=== PATIENT | female | born 1985 | race African-American/Black ===

== ENCOUNTER 2016-10-06 15:16 | Emergency (ER) | payer MEDICAID, OTHER ==
[~2016-10-06] VITALS: Ht 165.1 cm; Wt 100.0 kg
[~2016-10-06 15:16] MED LIST: DICL75TA PO; MAGICPED SWISH-SWAL; PENI500T PO
[2016-10-06 15:18] VITALS: BP 126/74; PULSE 79; RESP 16; TEMP 98.8; O2SAT 98
--- NOTE | 2016-10-06 15:29 | PD ---
HPI Chief Complaint: Abdominal Pain Time Seen by Provider: 15:29 Travel History International Travel<30 days: No Contact w/Intl Traveler<30days: No Traveled to known affect area: No History of Present Illness HPI 31 year-old female presents to the emergency department for evaluation of lower abdominal pain, low back pain, nausea, vomiting, and a vaginal discharge that is foul-smelling, noticed yesterday. Patient denies any fever or chills. Denies any bowel changes. No urinary symptoms. Is uncertain of . That her last menstrual cycle was at the beginning of this month. She has no other symptoms to report at this time. COUNT INCLUDES THE [facility] Past Medical History Asthma: Yes Diminished Hearing: No Hypertension: Yes Immunizations Current: No ?: Unknown LMP: 09/11/16 : 3 Para: 1 Miscarriage: 1 : 1 Dilation and Curettage (D&C): Yes (2007) Past Surgical History Section: Yes Gynecologic Surgery: Yes (D & C 09/2007, 2009) Other Surgery: Yes () Social History Alcohol Use: No Tobacco Use: Yes Substance Use: No Allergies-Medications (Allergen,Severity, Reaction): Coded Allergies: No Known Allergies (Verified , 10/06/16) Reported Meds & Prescriptions Reported Meds & Active Scripts Active Flagyl (Metronidazole) 500 Mg Tab 500 Mg PO BID 7 Days Review of Systems Except as stated in HPI: all other systems reviewed are Neg Physical Exam Narrative GENERAL: Well-nourished female patient, in no acute distress SKIN: Focused skin assessment warm/dry. HEAD: Atraumatic. Normocephalic. EYES: Pupils equal and round. No scleral icterus. No injection or drainage. ENT: No nasal bleeding or discharge. Mucous membranes pink and moist. NECK: Trachea midline. No JVD. CARDIOVASCULAR: Regular rate and rhythm. No murmur appreciated. RESPIRATORY: No accessory muscle use. Clear to auscultation. Breath sounds equal bilaterally. GASTROINTESTINAL: Abdomen soft, nondistended. Suprapubic tenderness to palpation.. Hepatic and splenic margins not palpable. GENITOURINARY: Normal external genitalia without lesions or erythema. Vaginal vault foul-smelling whitish green discharge. No blood.. Cervical os was closed without drainage. Mild cervical motion tenderness. Uterus nontender and nonenlarged. Bilateral adnexa nontender without masses. MUSCULOSKELETAL: No obvious deformities. No clubbing. No cyanosis. No edema. NEUROLOGICAL: Awake and alert. No obvious cranial nerve deficits. Motor grossly within normal limits. Normal speech. PSYCHIATRIC: Appropriate mood and affect; insight and judgment normal. Data Data Last Documented VS Vital Signs Date Time Temp Pulse Resp B/P Pulse Ox O2 Delivery O2 Flow Rate FiO2 10/06/16 15:18 98.8 79 16 126/74 98 Orders Urinalysis - C+S If Indicated (10/06/16 15:28) Wet Prep Profile (10/06/16 15:28) Gc And Chlamydia Pcr (10/06/16 15:28) Ed Urine Pregnancytest Poc (10/06/16 15:28) Ceftriaxone Inj (Rocephin Inj) (10/06/16 16:15) Lidocaine 1% Inj (50 Ml) (Xylocaine 1% I (10/06/16 16:15) Azithromycin (Zithromax) (10/06/16 16:15) Ketorolac Inj (Toradol Inj) (10/06/16 16:30) Labs Laboratory Tests Test 10/06/16 10/06/16 15:50 16:05 Urine Color LIGHT-YELLOW Urine Turbidity HAZY Urine pH 6.5 Urine Specific [place] 1.015 Urine Protein NEG mg/dL Urine Glucose (UA) NEG mg/dL Urine Ketones NEG mg/dL Urine Occult Blood NEG Urine Nitrite NEG Urine Bilirubin NEG Urine Urobilinogen LESS THAN 2.0 MG/DL Urine Leukocyte Esterase SMALL Urine WBC 6 /hpf Urine Squamous Epithelial 10 /hpf Cells Urine Bacteria RARE /hpf Microscopic Urinalysis Comment CULT NOT INDICATED Chlamydia trachomatis DNA NOT DETECTED (PCR) Neisseria gonorrhoeae DNA NOT DETECTED (PCR) Clue Cells (Wet Prep) PRESENT Vaginal Trichomonas (Wet Prep) NONE SEEN Vaginal Yeast (Wet Prep) NONE SEEN MDM Medical Decision Making Medical Screen Exam Complete: Yes Emergency Medical Condition: Yes Medical Record Reviewed: Yes Differential Diagnosis Cystitis versus vaginitis versus urethritis versus PID versus BV Narrative Course 31 year-old female presents to the urgency department for evaluation. Urine is hazy with small leukocyte esterase, 6 WBC, rare bacteria. Culture is not indicated. Wet prep is positive for clue cells. Patient will be strict treated for BV. GC PCR is pending. She'll be treated empirically for this. Urine is negative. She is encouraged to follow-up with primary care provider. She agrees to return immediately with any acute worsening of symptoms. Diagnosis Primary Impression: Bacterial vaginosis Additional Impression: Foul smelling vaginal discharge Referrals: Project Account Manager Primary Care Physician Patient Instructions: Bacterial Vaginosis (ED), General Instructions Additional Instructions: Follow-up with a primary care provider Seek gynecology evaluation Return immediately with any acute worsening of symptoms Med/Other Pt SpecificInfo: Prescription(s) given Scripts Metronidazole (Flagyl)500 Mg Eli629 Mg PO BID 7 Days Ref 0 Prov:Diamond Knowles 10/06/16 Disposition: DISCHARGE HOME Condition: Stable Diamond Knowles Oct 06, 2016 15:29
[2016-10-06] MEDS ORDERED: cefTRIAXone 250 MG VIAL IM ONE (16:15)
[2016-10-06] MEDS ORDERED: LIDOCAINE HCL 1% 50 ML VIAL XX ONE (16:15)
[2016-10-06] MEDS ORDERED: AZITHROMYCIN 250 MG TAB PO ONE (16:15)
[2016-10-06 16:16] LABS: BACTERIA, URINE RARE /hpf; BLOOD, URINE NEG (NEG); COMMENT (UR) CULT NOT INDICATED; CULTURE IF INDICATED CULT NOT INDICATED; GLUCOSE,URINE NEG (NEG); KETONE, URINE NEG (NEG); NITRITE,URINE NEG (NEG); PH, URINE 6.5 (5.0-8.5); SQUAMOUS EPITHELIAL CELL URINE 10 /hpf (0-5); URINE COLOR LIGHT-YELLOW (YELLW/STRAW)
[2016-10-06] MEDS ORDERED: KETOROLAC TROMETHAMINE 60 MG/2 ML (IM) VIAL IM ONE (16:30)
[2016-10-06] MEDS ORDERED: METR-1 PO (16:47)
[2016-10-06 18:37] LABS: CHLAMYDIA PCR NOT DETECTED (NOT DETECT); NEISSERIA PCR NOT DETECTED (NOT DETECT)
== END 2016-10-06 17:08 | disposition home or self-care (01) ==
LOC: NEPD 15:16
DX: N76.0 Acute vaginitis (principal); N89.8 Other specified noninflammatory disorders of vagina; I10 Essential (primary) hypertension; F17.210 Nicotine dependence, cigarettes, uncomplicated
CPT/HCPCS: 81001; 84703; 87210; 87491; 87591; 96372; 99284; J0696; J1885

== ENCOUNTER 2017-02-03 05:44 | Emergency (ER) | payer MEDICAID, OTHER ==
[~2017-02-03] VITALS: Ht 165.1 cm; Wt 119.0 kg
[~2017-02-03 05:44] MED LIST changes: -DICL75TA PO; -MAGICPED SWISH-SWAL; +METR-1 PO; -PENI500T PO
[2017-02-03 05:57] VITALS: BP 133/85; PULSE 81; RESP 18; TEMP 99.1
[2017-02-03 06:03] VITALS: BP 133/85; PULSE 87; RESP 18; TEMP 99.1; O2SAT 100
--- NOTE | 2017-02-03 06:11 | PD ---
HPI Chief Complaint: Respiratory Symptoms Time Seen by Provider: 06:08 Travel History International Travel<30 days: No Contact w/Intl Traveler<30days: No Traveled to known affect area: No History of Present Illness HPI 31 year-old female presents to the emergency department by EMS transport for complaint of shortness of breath and exacerbation of asthma. Patient is out of her rescue inhaler. Patient does not report other complaint of respiratory illness fever or chest pain abdominal pain or vomiting. No report of lower extremity pain or swelling. Patient denies other concerns or complaints. Last period was January 16 and normal for her. Denies . Patient did receive Solu-Medrol 125 mg IV prior to arrival to the emergency department and one albuterol updraft with some improvement of symptoms. Patient still complains of persistent shortness of breath. Patient admits to tobaccoism. [facility] Past Medical History Narrative Medical Asthma Ab2 D&C tobaccoism nursing notes reviewed Asthma: Yes Diminished Hearing: No Hypertension: Yes Immunizations Current: No ?: Not LMP: 01/16/17 : 3 Para: 1 Miscarriage: 1 : 1 Dilation and Curettage (D&C): Yes (2007) Past Surgical History Section: Yes Gynecologic Surgery: Yes (D & C 09/2007, 2009) Other Surgery: Yes () Social History Alcohol Use: No Tobacco Use: Yes Substance Use: No Allergies-Medications (Allergen,Severity, Reaction): Coded Allergies: No Known Allergies (Verified , 10/06/16) Reported Meds & Prescriptions Reported Meds & Active Scripts Active Medrol Dosepak (Methylprednisolone) 4 Mg Dspk 4 Mg PO DIRECTED Per Pharmacist direction Proair Hfa 8.5 GM Inh (Albuterol Sulfate) 90 Mcg/Act Aer 2 Puff INH Q4-6H PRN 108 mcg/actuation Flagyl (Metronidazole) 500 Mg Tab 500 Mg PO BID 7 Days Review of Systems Except as stated in HPI: all other systems reviewed are Neg General / Constitutional: No: Fever, Chills HENT: No: Congestion Cardiovascular: No: Chest Pain or Discomfort Respiratory: Positive: Cough, Shortness of Breath Gastrointestinal: No: Nausea, Vomiting, Abdominal Pain Genitourinary: No: Dysuria, Flank Pain Musculoskeletal: No: Myalgias, Arthralgias Skin: No Rash Neurologic: No: Weakness Psychiatric: No: Anxiety Endocrine: No: Heat Intolerance Hematologic/Lymphatic: No: Lymph Node Enlargement Physical Exam Narrative GENERAL: Well-developed well-nourished female in no acute distress no respiratory distress SKIN: Warm and dry. HEAD: Normocephalic. EYES: No scleral icterus. No injection or drainage. NECK: Supple, trachea midline. No JVD or lymphadenopathy. CARDIOVASCULAR: Regular rate and rhythm without murmurs, gallops, or rubs. RESPIRATORY: Breath sounds equal bilaterally diminished breath sounds with few end expiratory wheezes. No accessory muscle use. GASTROINTESTINAL: Abdomen soft, non-tender, nondistended. MUSCULOSKELETAL: No cyanosis, or edema. BACK: Nontender without obvious deformity. No CVA tenderness. Data Data Last Documented VS Vital Signs Date Time Temp Pulse Resp B/P (MAP) Pulse Ox O2 Delivery O2 Flow Rate FiO2 02/03/17 06:03 99.1 87 18 133/85 (101) 100 02/03/17 06:03 Room Air Orders Orders Albuterol-Ipratropium Neb (Duoneb Neb) (02/03/17 06:15) [facility] Medical Decision Making Medical Screen Exam Complete: Yes Emergency Medical Condition: Yes Medical Record Reviewed: Yes Differential Diagnosis Exacerbation asthma, bronchitis, medication refill Narrative Course Patient with history of asthma smoke cigarettes out of her rescue inhaler presents with complaint of shortness of breath. No other concerns or complaints no recent respiratory illness or febrile illness. No chest pain or abdominal pain no pleuritic pain lower extremity numbness tingling weakness swelling or pain. No orthopnea or PND. Patient will receive an additional updraft treatment and will need a refill of her rescue inhaler. Patient also reports that she needs a refill of albuterol solution for her nebulizer. After updraft treatment in the emergency department lung sounds are clear patient is stable for outpatient management. Diagnosis Primary Impression: Asthma Additional Impression: Medication refill Referrals: Primary Care Physician call for appointment Patient Instructions: General Instructions Additional Instructions: Increase fluid hydration Use inhaler as prescribed as needed Complete course of steroid as prescribed Follow-up with your primary care provider clinic May use acetaminophen/Tylenol as needed for fever 100.4F or greater Return to the emergency department for any concerns or change in condition Med/Other Pt SpecificInfo: Prescription(s) given Scripts Albuterol Neb (Albuterol Neb) 2.5 Mg/3 Ml Neb 2.5 MG NEB Q4HR NEB Y for SHORTNESS OF BREATH, #60 NEBULE 0 Refills Prov: Melissa Lewis MD 02/03/17 Methylprednisolone Dosepak (Medrol Dosepak) 4 Mg Dspk 4 MG PO DIRECTED, #1 DSPK 0 Refills Per Pharmacist direction Prov: Melissa Lewis MD 02/03/17 Albuterol 8.5 GM Inh (Proair Hfa 8.5 GM Inh) 90 Mcg/Act Aer 2 PUFF INH Q4-6H Y for SHORTNESS OF BREATH, #1 INHALER 0 Refills 108 mcg/actuation Prov: Melissa Lewis MD 02/03/17 Disposition: 01 DISCHARGE HOME Condition: Stable Melissa Lewis MD Feb 03, 2017 06:11
[2017-02-03] MEDS ORDERED: RESP: ALBUTEROL 2.5 MG/IPRATROPIUM 0.5 MG NEB (SCH) NEB ONE (06:15)
[2017-02-03] MEDS ORDERED: MEDR4PAK PO (06:31)
[2017-02-03] MEDS ORDERED: ALBUAER3 INH (06:31)
[2017-02-03] MEDS ORDERED: ALBU0.08 NEB (06:34)
== END 2017-02-03 06:42 | disposition home or self-care (01) ==
LOC: NEPC 05:44
DX: Z76.0 Encounter for issue of repeat prescription (principal); J45.909 Unspecified asthma, uncomplicated; I10 Essential (primary) hypertension
CPT/HCPCS: 94664; 99283

== ENCOUNTER 2017-02-22 18:02 | Emergency (ER) | payer OTHER ==
[~2017-02-22 18:02] MED LIST changes: +ALBU0.08 NEB; +ALBUAER3 INH; +MEDR4PAK PO
[2017-02-22 18:03] VITALS: BP 151/97; PULSE 89; RESP 20; TEMP 98.4; O2SAT 98
== END 2017-02-22 18:25 | disposition left against medical advice (07) ==
LOC: NED 18:02
DX: R10.9 Unspecified abdominal pain (principal); Z53.21 Procedure and treatment not carried out due to patient leaving prior to being seen by health care provider
CPT/HCPCS: 99281

== ENCOUNTER 2017-08-10 08:32 | Emergency (ER) | payer OTHER ==
[~2017-08-10] VITALS: Ht 165.1 cm; Wt 111.0 kg
[2017-08-10 08:38] VITALS: BP 123/77; PULSE 86; RESP 18; TEMP 98.7; O2SAT 100
[2017-08-10] MEDS ORDERED: SODIUM CHLORIDE 0.9% FLUSH 10 ML FLUSH IV FLUSH PRN (09:15)
--- NOTE | 2017-08-10 09:15 | PD ---
HPI Chief Complaint: Abdominal Pain Time Seen by Provider: 08:59 Travel History International Travel<30 days: No Contact w/Intl Traveler<30days: No Traveled to known affect area: No History of Present Illness HPI The patient was seen and examined in the presence of the nurse. This patient complains of pelvic pain. It's bilateral right and low quadrant pain. Duration 6 days. In a very atypical fashion, her pain comes on in the middle of night around 2 AM. She does not have pain during the day or evening times. She denies vaginal discharge or bleeding or urinary complaints or fever or vomiting or diarrhea. Severity is moderate. No alleviating factors. No exacerbating factors. PFSH Past Medical History Asthma: Yes Diminished Hearing: No Hypertension: Yes Immunizations Current: No ?: Not LMP: 07/14/17 : 3 Para: 1 Miscarriage: 1 : 1 Dilation and Curettage (D&C): Yes (2007) Past Surgical History Section: Yes Gynecologic Surgery: Yes (D & C 09/2007, 2009) Other Surgery: Yes () Social History Alcohol Use: No Tobacco Use: Yes Substance Use: No Allergies-Medications (Allergen,Severity, Reaction): Coded Allergies: No Known Allergies (Verified Adverse Reaction, Unknown, 08/10/17) Reported Meds & Prescriptions Reported Meds & Active Scripts Active Albuterol Neb (Albuterol Sulfate) 2.5 Mg/3 Ml Neb 2.5 Mg NEB Q4HR NEB PRN Medrol Dosepak (Methylprednisolone) 4 Mg Dspk 4 Mg PO DIRECTED Per Pharmacist direction Proair Hfa 8.5 GM Inh (Albuterol Sulfate) 90 Mcg/Act Aer 2 Puff INH Q4-6H PRN 108 mcg/actuation Flagyl (Metronidazole) 500 Mg Tab 500 Mg PO BID 7 Days Review of Systems General / Constitutional: No: Fever Eyes: No: Visual changes HENT: No: Headaches Cardiovascular: No: Chest Pain or Discomfort Respiratory: No: Shortness of Breath Gastrointestinal: Positive: Abdominal Pain Genitourinary: Positive: Pelvic Pain, No: Dysuria Musculoskeletal: No: Pain Skin: No Rash Neurologic: No: Weakness Psychiatric: No: Depression Endocrine: No: Polydipsia Hematologic/Lymphatic: No: Easy Bruising Physical Exam Narrative GENERAL: Well-nourished, well-developed patient with pelvic pain . SKIN: Focused skin assessment reveals no rash and nodules. Skin is Warm and dry. HEAD: Atraumatic. Normocephalic. EYES: Pupils equal and round. No scleral icterus. No injection or drainage. ENT: No nasal bleeding or discharge. Mucous membranes pink and moist. NECK: Trachea midline. No JVD. CARDIOVASCULAR: Regular rate and rhythm. No murmur appreciated. RESPIRATORY: No accessory muscle use. Clear to auscultation. Breath sounds equal bilaterally. GASTROINTESTINAL: Abdomen soft, some bilateral lower quadrant tenderness without rebound or guarding , nondistended. Hepatic and splenic margins not palpable. MUSCULOSKELETAL: No obvious deformities. No clubbing. No cyanosis. No edema. NEUROLOGICAL: Awake and alert. No obvious cranial nerve deficits. Motor grossly within normal limits. Normal speech. PSYCHIATRIC: Appropriate mood and affect; insight and judgment normal. Pelvic: Speculum exam was done. No blood or discharge in the vault. No cervical motion tenderness. There is some vague right and left adnexal tenderness Data Data Last Documented VS Vital Signs Date Time Temp Pulse Resp B/P (MAP) Pulse Ox O2 Delivery O2 Flow Rate FiO2 08/10/17 08:38 98.7 86 18 123/77 (92) 100 Orders Orders Basic Metabolic Panel (Bmp) (08/10/17 09:05) Complete Blood Count With Diff (08/10/17 09:05) Urinalysis - C+S If Indicated (08/10/17 09:05) Iv Access Insert/Monitor (08/10/17 09:05) NPO (08/10/17 09:05) Sodium Chloride 0.9% Flush (Ns Flush) (08/10/17 09:15) Ed Urine Pregnancytest Poc (08/10/17 09:05) Labs Laboratory Tests Test 08/10/17 09:04 08/10/17 09:14 White Blood Count 4.7 TH/MM3 Red Blood Count 4.56 MIL/MM3 Hemoglobin 13.1 GM/DL Hematocrit 38.5 % Mean Corpuscular Volume 84.3 FL Mean Corpuscular Hemoglobin 28.6 PG Mean Corpuscular Hemoglobin Concent 34.0 % Red Cell Distribution Width 15.0 % Platelet Count 265 TH/MM3 Mean Platelet Volume 6.8 FL Neutrophils (%) (Auto) 52.2 % Lymphocytes (%) (Auto) 38.5 % Monocytes (%) (Auto) 7.2 % Eosinophils (%) (Auto) 1.4 % Basophils (%) (Auto) 0.7 % Neutrophils # (Auto) 2.5 TH/MM3 Lymphocytes # (Auto) 1.8 TH/MM3 Monocytes # (Auto) 0.3 TH/MM3 Eosinophils # (Auto) 0.1 TH/MM3 Basophils # (Auto) 0.0 TH/MM3 CBC Comment DIFF FINAL Differential Comment Blood Urea Nitrogen 11 MG/DL Creatinine 0.84 MG/DL Random Glucose 83 MG/DL Calcium Level 9.0 MG/DL Sodium Level 140 MEQ/L Potassium Level 3.9 MEQ/L Chloride Level 108 MEQ/L Carbon Dioxide Level 26.5 MEQ/L Anion Gap 6 MEQ/L Estimat Glomerular Filtration Rate 96 ML/MIN Urine Color YELLOW Urine Turbidity HAZY Urine pH 6.0 Urine Specific [place] 1.014 Urine Protein NEG mg/dL Urine Glucose (UA) NEG mg/dL Urine Ketones NEG mg/dL Urine Occult Blood NEG Urine Nitrite NEG Urine Bilirubin NEG Urine Urobilinogen LESS THAN 2.0 MG/DL Urine Leukocyte Esterase NEG Urine RBC LESS THAN 1 /hpf Urine WBC LESS THAN 1 /hpf Urine Squamous Epithelial Cells 20 /hpf Urine Transitional Epithelial Cells <1 /hpf Microscopic Urinalysis Comment CULT NOT INDICATED MDM Medical Decision Making Medical Screen Exam Complete: Yes Emergency Medical Condition: Yes Medical Record Reviewed: Yes Differential Diagnosis Colitis, ovarian cystic disease, ectopic Narrative Course I have reviewed the patient's electronic medical record. I evaluated the patient and ordered a workup. Pelvic exam was done as well. No sign of PID CBC and metabolic profiles were normal Urine was clean is negative Patient decided she couldn't wait any longer and signed out AGAINST MEDICAL ADVICE. I was with a critical patient and did not know she had left until she was already gone out the door. She did not get her instructions and I did not have a chance to recheck her and review results and decide if anything else should be done such as imaging Diagnosis Primary Impression: Abdominal pain Qualified Codes: R10.30 - Lower abdominal pain, unspecified Disposition: 07 AGAINST MEDICAL ADVICE Randolph Kim MD Aug 10, 2017 09:15
[2017-08-10 09:24] LABS: AUTOMATED NEUTROPHIL # 2.5 TH/MM3 (1.8-7.7); BASOPHIL % 0.7 % (0.0-2.0); EOSINOPHIL # 0.1 TH/MM3 (0-0.4); EOSINOPHIL % 1.4 % (0.0-4.0); HEMATOCRIT 38.5 % (35.0-46.0); HEMOGLOBIN 13.1 GM/DL (11.6-15.3); LYMPH % 38.5 % (9.0-44.0); LYMPHOCYTE # 1.8 TH/MM3 (1.0-4.8); MEAN CELL VOLUME 84.3 FL (80.0-100.0); MEAN CORPUSCULAR HEMOGLOBIN 28.6 PG (27.0-34.0); MEAN PLATELET VOLUME 6.8 FL (7.0-11.0); MONO % 7.2 % (0.0-8.0); MONOCYTE # 0.3 TH/MM3 (0-0.9); NEUT % 52.2 % (16.0-70.0); PLATELET COUNT 265 TH/MM3 (150-450); RED BLOOD COUNT 4.56 MIL/MM3 (4.00-5.30); WHITE BLOOD COUNT 4.7 TH/MM3 (4.0-11.0)
[2017-08-10 09:48] LABS: BICARBONATE 26.5 MEQ/L (21.0-32.0); CREATININE 0.84 MG/DL (0.50-1.00)
[2017-08-10 10:31] LABS: BILIRUBIN, URINE NEG (NEG); BLOOD, URINE NEG (NEG); GLUCOSE,URINE NEG (NEG); KETONE, URINE NEG (NEG); NITRITE,URINE NEG (NEG); SQUAMOUS EPITHELIAL CELL URINE 20 /hpf (0-5); TRANSITIONAL EPI CELLS, URINE <1 /hpf; URINE COLOR YELLOW (YELLW/STRAW); URINE LEUKOCYTE ESTERASE NEG (NEG)
== END 2017-08-10 12:10 | disposition left against medical advice (07) ==
LOC: NEPE 08:32
DX: R10.30 Lower abdominal pain, unspecified (principal); J45.909 Unspecified asthma, uncomplicated; Z72.0 Tobacco use
CPT/HCPCS: 80048; 81001; 84703; 85025; 99284

== ENCOUNTER 2017-10-04 07:43 | Emergency (ER) | payer OTHER ==
[~2017-10-04] VITALS: Ht 167.6 cm; Wt 100.0 kg
[2017-10-04 07:45] VITALS: BP 135/91; PULSE 98; RESP 16; TEMP 98.6; O2SAT 100
[2017-10-04] MEDS ORDERED: KETOROLAC TROMETHAMINE 60 MG/2 ML (IM) VIAL IM ONE (09:00)
[2017-10-04] MEDS ORDERED: ORPHENADRINE INJ 60 MG/2 ML AMP IM ONE (09:00)
--- NOTE | 2017-10-04 09:38 | RADRPT ---
EXAM DATE/TIME: 10/04/2017 09:17 [facility] COMPARISON: No previous studies available for comparison. INDICATIONS : Fall 6 days ago. Right ankle pain. MEDICAL HISTORY : None. SURGICAL HISTORY : None. ENCOUNTER: Initial ACUITY: 1 week PAIN SCORE: 5/10 LOCATION: Right ankle FINDINGS: Two view examination of the right tibia demonstrates no evidence of fracture or dislocation. Bony mi neralization is normal. The soft tissue structures are intact. CONCLUSION: 1. No acute fracture or dislocation. Rivera Rod MD on October 04, 2017 at 9:35 Board Certified Radiologist. This report was verified electronically.
--- NOTE | 2017-10-04 09:39 | RADRPT ---
EXAM DATE/TIME: 10/04/2017 09:13 [facility] COMPARISON: No previous studies available for comparison. INDICATIONS : Fall 6 days ago. Right ankle pain. MEDICAL HISTORY : None. SURGICAL HISTORY : None. ENCOUNTER: Initial ACUITY: 1 week PAIN SCORE: 5/10 LOCATION: Right ankle FINDINGS: Three view exam was performed of the right ankle. The bony structures are in normal alignment. No e vidence of fracture, dislocation, or soft tissue swelling. The ankle mortise is intact. Plantar allyson caneal spurring. No radiopaque foreign bodies are seen. Bony mineralization is normal. CONCLUSION: 1. No acute fracture or dislocation. Rivera Rod MD on October 04, 2017 at 9:35 Board Certified Radiologist. This report was verified electronically.
--- NOTE | 2017-10-04 09:55 | PD ---
HPI Chief Complaint: Back/ Neck Pain or Injury Time Seen by Provider: 08:36 Travel History International Travel<30 days: No Contact w/Intl Traveler<30days: No Traveled to known affect area: No History of Present Illness HPI 32-year-old female presents to the emergency department with complaint of right lower leg pain and continued lower back pain after falling on September 28 at [facility]. She says she was seen in [facility] on they did an x-ray of her lower back which was normal, per the patient. They did not x-ray her right lower leg. She says she hit her leg on the floor and that was causing her pain. She is having pain to her izquierdo and her ankle. Denies encopresis, incontinence, saddle anesthesias. Denies fever, vomiting, abdominal pain. Denies paresthesias, loss of sensation, decreased range of motion, decreased strength to bilateral lower extremity's. Says she was given medications from [facility] for her low back pain and does not know what they are, but states they are not helping. Pain is worse with walking, standing too long. Better with sitting. Rates pain 8/10. Describes as throbbing and aching. Primary care providers on [place]. Says she can call tomorrow for an appointment. Has no known allergies. No significant past medical history. Has no other medical complaints. No other modifying factors or associated signs and symptoms. PFSH Past Medical History Asthma: Yes Diminished Hearing: No Hypertension: Yes Immunizations Current: No : 3 Para: 1 Miscarriage: 1 : 1 Dilation and Curettage (D&C): Yes (2007) Past Surgical History Section: Yes Gynecologic Surgery: Yes (D & C 09/2007, 2009) Other Surgery: Yes () Social History Alcohol Use: No Tobacco Use: Yes Substance Use: No Allergies-Medications (Allergen,Severity, Reaction): Coded Allergies: No Known Allergies (Verified Adverse Reaction, Unknown, 10/04/17) Reported Meds & Prescriptions Reported Meds & Active Scripts Active Albuterol Neb (Albuterol Sulfate) 2.5 Mg/3 Ml Neb 2.5 Mg NEB Q4HR NEB PRN Medrol Dosepak (Methylprednisolone) 4 Mg Dspk 4 Mg PO DIRECTED Per Pharmacist direction Proair Hfa 8.5 GM Inh (Albuterol Sulfate) 90 Mcg/Act Aer 2 Puff INH Q4-6H PRN 108 mcg/actuation Flagyl (Metronidazole) 500 Mg Tab 500 Mg PO BID 7 Days Review of Systems Except as stated in HPI: all other systems reviewed are Neg Physical Exam Narrative GENERAL: Well-nourished, well-developed black female patient, in no acute distress; afebrile, nontoxic-appearing SKIN: Warm and dry. HEAD: Atraumatic. Normocephalic. EYES: Pupils equal and round. No scleral icterus. No injection or drainage. ENT: Mucosa pink and moist. Airway patent. NECK: Trachea midline. CARDIOVASCULAR: Regular rate. RESPIRATORY: No accessory muscle use. GASTROINTESTINAL: Abdomen soft, non-tender, nondistended. Positive bowel sounds. No hepato-splenomegaly, or palpable masses. No guarding. MUSCULOSKELETAL: Bilateral lower extremities supple and non-tense with 2+ pedal pulses and sensory intact; with full range of motion and 5/5 strength. 2 + DTRs bilaterally. Active dorsiflexion and extension of bilateral feet. Bilateral straight leg raise is negative for low back pain. Ambulatory in room with a limp to right lower extremity. Right izquierdo with tenderness on palpation; without erythema, edema, ecchymosis; no obvious deformity. Right ankle with tenderness on palpation to the lateral malleolar zone; without erythema, edema, ecchymosis; no obvious deformities. Sitting up in bed at 90. No obvious deformities. No clubbing. No cyanosis. No edema. BACK: No midline point tenderness on palpation of the lumbar spine. Tenderness on palpation of right lumbar iliosacral area. No obvious deformities. NEUROLOGICAL: Awake and alert. Oriented 3. No obvious cranial nerve deficits. Motor grossly within normal limits. Normal speech. Moves all extremities. 5/5 strength to all extremities. Sensory intact. PSYCHIATRIC: Appropriate mood and affect; insight and judgment normal. Data Data Last Documented VS Vital Signs Date Time Temp Pulse Resp B/P (MAP) Pulse Ox O2 Delivery O2 Flow Rate FiO2 10/04/17 07:45 98.6 98 16 135/91 (106) 100 Orders Orders Ketorolac Inj (Toradol Inj) (10/04/17 09:00) Orphenadrine Inj (Norflex Inj) (10/04/17 09:00) Ankle, Complete (Htu5ndr) (10/04/17 08:49) Tibia/Fibula (Ap/Lat) (10/04/17 08:49) Crutches (10/04/17 08:49) Splint Or Brace Apply/Monitor (10/04/17 09:55) Ed Discharge Order (10/04/17 09:55) Brace Ankle Stirrup (10/04/17 ) MDM Medical Decision Making Medical Screen Exam Complete: Yes Emergency Medical Condition: Yes Medical Record Reviewed: Yes Differential Diagnosis Fall, hip/fib fracture, leg contusion, ankle sprain, injury, low back pain Narrative Course 32-year-old female with continued low back pain and right lower leg pain [facility] at [facility] on and per the patient had a normal x-ray of her lower back. Her leg was not x-rayed. I do not suspect fracture or dislocation and do not feel imaging is necessary, but patient is requesting imaging and I will do imaging to rule out acute findings. Right tib-fib and ankle x-ray ordered. [id number]: Tibia/Fibula X-Ray 10/04/17848 Signed Impressions: Service Date/Time: Wednesday, October 04, 2017 09:17 - CONCLUSION: 1. No acute fracture or dislocation. Rivera Rod MD Ankle X-Ray 10/04/1749 Signed Impressions: Service Date/Time: Wednesday, October 04, 2017 09:13 - CONCLUSION: 1. No acute fracture or dislocation. Rivera Rod MD X-ray findings discussed with the patient. Umesh bandage, ankle stirrup splint, crutches provided for support. Instructed patient to follow up with primary care provider. Patient verbalizes understanding and agreement with treatment plan. Patient is medically cleared and stable for discharge. Discussed reasons to return to the emergency department. Patient agrees with treatment plan. The patients vital signs are stable and the patient is stable for outpatient follow-up and treatment. Patient discharged home, stable and in no acute distress. Diagnosis Primary Impression: Fall Qualified Codes: W19.XXXA - Unspecified fall, initial encounter Additional Impressions: Injury of right lower leg Qualified Codes: S89.91XA - Unspecified injury of right lower leg, initial encounter Right ankle injury Qualified Codes: S99.911A - Unspecified injury of right ankle, initial encounter Acute right-sided low back pain Qualified Codes: M54.5 - Low back pain Referrals: [facility] Primary Care Physician Patient Instructions: Acute Low Back Pain (ED), Ankle Sprain (ED), Ankle Sprain Exercises (GEN), Crutch Instructions (ED), General Instructions, Low Back Strain (ED) Additional Instructions: Tylenol or ibuprofen as directed and as needed for pain and inflammation Rest, ice, compress, and elevate extremity to decrease pain and inflammation Ankle Brace for support Crutches for support Avoid aggravating activity; increase activity as tolerated Follow-up with primary care provider Return to the emergency department immediately with worsening of symptoms Continue medications as prescribed by previous hospital for low back pain Heating pad and/or ice to affected area to reduce pain Avoid aggravating activities; increase activity as tolerated Follow-up with primary care provider Return to emergency department immediately with worsening of symptoms Med/Other Pt SpecificInfo: No Change to Meds, No Meds Exist/No RX given Disposition: 01 DISCHARGE HOME Condition: Stable Rosalinda Osuna Oct 04, 2017 09:55
== END 2017-10-04 10:21 | disposition home or self-care (01) ==
LOC: NEPD 07:43
DX: S89.91XA Unspecified injury of right lower leg, initial encounter (principal); S99.911A Unspecified injury of right ankle, initial encounter; M54.5 Low back pain; J45.909 Unspecified asthma, uncomplicated; W19.XXXA Unspecified fall, initial encounter; Y92.512 Supermarket, store or market as the place of occurrence of the external cause; Z72.0 Tobacco use
CPT/HCPCS: 73590; 73610; 96372; 99283; E0113; J1885; J2360; L1906